=== PATIENT | female | born 1985 | race Two or more races ===

== ENCOUNTER 2020-02-18 19:21 | Emergency (ER) | payer OTHER ==
[~2020-02-18] VITALS: Ht 160 cm; Wt 97.5 kg
[2020-02-18 22:02] VITALS: BP 121/80
[2020-02-18] MEDS: KETOROLAC TROMETH 60MG/2ML VIAL IM ONE (23:24)
[2020-02-18] MEDS: methylPREDNISolone SOD SUCC 125 MG/2 ML VL IM ONE (23:24)
[2020-02-18] MEDS: BACLOFEN 10 MG TAB PO ONE (23:24)
[2020-02-19] MEDS: ACETAMINOPHEN 500 MG TAB PO ONE (00:23)
== END 2020-02-18 23:03 | disposition home or self-care (01) ==
LOC: ER 19:21
DX: S33.5XXA Sprain of ligaments of lumbar spine, initial encounter (principal); M62.838 Other muscle spasm; X58.XXXA Exposure to other specified factors, initial encounter; Y93.89 Activity, other specified; Y92.89 Other specified places as the place of occurrence of the external cause; Y99.8 Other external cause status
CPT/HCPCS: 72131; 96372; 99284; J1885; J2930